=== PATIENT | female | born 1995 | race Caucasian/White ===

== ENCOUNTER 2021-04-13 08:40 | Emergency (ER) | payer OTHER ==
[2021-04-13 08:51] VITALS: BP 128/88; PULSE 101; RESP 18; TEMP 98
[2021-04-13] MEDS ORDERED: KETOROLAC 15 MG/ML 1 ML VIAL IM STA (08:56)
--- NOTE | 2021-04-13 09:22 | XR ---
EXAMINATION TYPE: XR ankle complete RT DATE OF EXAM: 04/13/2021 COMPARISON: NONE HISTORY: 25 years Female. STUDY INDICATION GIVEN: pain . TECHNIQUE: 3 Radiographs of the right ankle IMPRESSION: Normal ankle mortise. Minimal bimalleolar soft tissue swelling. Trace joint effusion. No acute fractu re or dislocation seen.
--- NOTE | 2021-04-13 09:30 | ED ---
Lower Extremity Injury HPI - General Chief Complaint: Extremity Injury, Lower Stated Complaint: Left Ankle pain Time Seen by Provider: 04/13/21 08:54 Source: patient, RN notes reviewed Mode of arrival: ambulatory Limitations: no limitations - History of Present Illness Initial Comments: Patient is a 25-year-old female that presents to emergency department complaining of right ankle pain. She notes that on 04/12/2021 she was getting home working at 2 AM when she stepped in a pothole in regard rolled her ankle. She notes that she came to the ER yesterday but had to leave so she is Covid her boyfriend up on the fourth floor. She comes back today with a similar pain and right ankle swelling. She notes that she does have full sensation and feeling in her right ankle is just painful to move. She notes her pain is approximately a 6-7 out of 10 with no relief from at home medications. She noted that there was no alleviating factors in that walking on and using irregular worse. She denied any chest pain shortness of breath headache nausea vomiting diarrhea constipation fever fatigue chills. - Related Data Home Medications Medication Instructions Recorded Confirmed Control(Unknown) 1 tab PO DAILY 04/13/21 04/13/21 Allergies Allergy/AdvReac Type Severity Reaction Status Date / Time No Known Allergies Allergy Verified 04/13/21 09:16 Review of Systems ROS Statement: Those systems with pertinent positive or pertinent negative responses have been documented in the HPI. ROS Other: All systems not noted in ROS Statement are negative. Past Medical History Past Medical History: No Reported History History of Any Multi-Drug Resistant Organisms: None Reported Past Surgical History: Adenoidectomy, Tonsillectomy Past Psychological History: No Psychological Hx Reported Smoking Status: Current every day smoker Past Alcohol Use History: Occasional Past Drug Use History: Marijuana General Exam Limitations: no limitations General appearance: alert, in no apparent distress Head exam: Present: atraumatic, normocephalic, normal inspection Eye exam: Present: normal appearance, PERRL, EOMI. Absent: scleral icterus, conjunctival injection, periorbital swelling Neck exam: Present: normal inspection Respiratory exam: Present: normal lung sounds bilaterally. Absent: respiratory distress, wheezes, rales, rhonchi, stridor Cardiovascular Exam: Present: regular rate, normal rhythm, normal heart sounds. Absent: systolic murmur, diastolic murmur, rubs, gallop, clicks Right Ankle exam: Present: normal inspection, tenderness (Over the bilateral malleoli), swelling (Moderate on the medial malleoli, minimal lateral malleoli). Absent: full ROM (Secondary to pain), abrasion, laceration, ecchymosis, deformity, crepitus, dislocation Neurological exam: Present: alert, oriented X3 Psychiatric exam: Present: normal affect, normal mood Skin exam: Present: warm, dry, intact, normal color. Absent: rash Course Vital Signs 04/13/21 08:47 Temperature 98 F Pulse Rate 101 H Respiratory 18 Rate Blood Pressure 128/88 O2 Sat by Pulse 100 Oximetry Procedures - Orthopedic Splinting/Casting Injury #1 Side: right Lower Extremity Injury Location: ankle Lower Extremity Immobilizer: [employer] Medical Decision Making - Medical Decision Making 25-year-old female complaining of right ankle pain after rolling it 2 days ago. X-ray the right ankle, 15 mg of Toradol ordered. X-ray negative for any acute fractures dislocations, patient most likely has a right ankle sprain. Air cast splint ordered and applied. Case discussed with Dr. Markham, patient discharge home with follow-up to orthopedics as needed. - Radiology Data Radiology results: report reviewed, image reviewed Right ankle x-ray: Normal ankle more T's. Minimal bimalleolar soft tissue swelling. Trace joint effusion. No acute fracture dislocation seen. Disposition Clinical Impression: Right ankle sprain Disposition: HOME SELF-CARE Condition: Stable Instructions (If sedation given, give patient instructions): Ankle Sprain (ED) Additional Instructions: Please return to the Emergency Department if symptoms worsen or any other concerns. Follow-up with primary care as needed. Follow-up with orthopedics as needed. Use as tolerated, use Tylenol Motrin as needed for pain. Rest ice compress elevate Is patient prescribed a controlled substance at d/c from ED?: No Referrals: None,Stated [Primary Care Provider] - 1-2 days Omar Mora MD [Medical Doctor] - 1-2 days Time of Disposition: 09:30
== END 2021-04-13 09:50 | disposition home or self-care (01) ==
LOC: EC 08:40
DX: S93.401A Sprain of unspecified ligament of right ankle, initial encounter (principal); F17.200 Nicotine dependence, unspecified, uncomplicated; F12.90 Cannabis use, unspecified, uncomplicated; X50.1XXA Overexertion from prolonged static or awkward postures, initial encounter
CPT/HCPCS: 73610; 99283; 96372; J1885